=== PATIENT | female | born 2000 | race Caucasian/White ===

== ENCOUNTER 2019-01-15 13:59 | Observation (INO) | payer SELFPAY ==
[~2019-01-15] VITALS: Ht 162.6 cm; Wt 65.9 kg
--- NOTE | 2019-01-15 14:34 | NUR ---
URINE SENT TO THE LAB.
[2019-01-15 14:40] LABS: BASOPHILS 0.3 % (0-2); EOSINOPHILS 0.6 % (0-7); HEMATOCRIT 35.2 % (36.0-48.0); HEMOGLOBIN 12.6 g/dL (12-16); IMMATURE GRANULOCYTES 0.4 % (0-5); LYMPHOCYTES 12.9 % (15-50); MCH 29.5 pg (26.0-34.0); MCHC 35.8 g/dL (31.0-37.0); MCV 82.4 fL (80.0-100.0); MONOCYTES 7.1 % (2-11); NEUTROPHILS 78.7 % (40-80); PLATELET COUNT 252 10x3/uL (130-400); RBC 4.27 10x6/uL (4.00-5.40); RDW 12.5 % (11.5-14.5); WBC 12.8 10x3/uL (4.8-10.8)
[2019-01-15 14:54] LABS: APPEARANCE CLEAR (CLEAR); BILIRUBIN NEGATIVE (NEGATIVE); COLOR YELLOW (YELLOW); GLUCOSE NEGATIVE (NEGATIVE); KETONE NEGATIVE (NEGATIVE); NITRITE NEGATIVE (NEGATIVE); PROTEIN NEGATIVE (NEGATIVE); UROBILINOGEN NORMAL (NORMAL)
[2019-01-15 14:55] LABS: BACTERIA MANY /hpf (NONE SEEN); EPITHELIAL CELLS 0-5 /hpf (0-5); HCG URINE NEGATIVE (NEGATIVE); MUCUS <1+ /lpf (NONE SEEN); RED CELLS - URINE 0-5 /hpf (0-5)
[2019-01-15 14:58] LABS: ALBUMIN 4.5 g/dL (3.4-5.0); ALKALINE PHOSPHATASE 85 U/L (46-116); ALT (SGPT) 33 U/L (10-68); BILIRUBIN - TOTAL 0.46 mg/dL (0.2-1.3); CALC OSMOLALITY 272 mosm/kg (275-300); CARBON DIOXIDE 28.2 mmol/L (21.0-32.0); CHLORIDE - SERUM 101 mmol/L (98-107); CREATININE - SERUM 0.9 mg/dL (0.6-1.3); GLUCOSE 90 mg/dL (74-106); POTASSIUM - SERUM 4.5 mmol/L (3.5-5.1); SODIUM 136 mmol/L (136-145); UREA NITROGEN 15 mg/dL (7-18); eGFR NON AFRICAN AMERICAN 85 mL/min (90-120)
[2019-01-15 17:16] VITALS: BP 140/93; Ht 162.6 cm; Wt 65.9 kg
--- NOTE | 2019-01-15 19:23 | NUR ---
PT PREOP AND READY FOR SX. CONSENTS SIGNED. NO S/S OF ACUTE DISTRESS. CL IN PLACE. FAMILY AT BEDSIDE.
[2019-01-15 21:27] VITALS: BP 116/68
--- NOTE | 2019-01-15 22:05 | NUR ---
DISCHARGED PATIENT VIA WHEELCHAIR WITH FAMILY. NO S/S OF DISTRESS
--- NOTE | 2019-01-16 17:11 | OP ---
PATIENT NAME: OZZY ISSA MEDICAL RECORD: [id number] :[birth year] LOCATION:D.M3 D.1211 ADMISSION DATE:01/15/19 SURGEON: XU TAVERAS MD DATE OF OPERATION: 01/15/2019 SURGEON: Xu Taveras MD ANESTHESIA: General anesthesia by Waylon Berrios CRNA. DIAGNOSIS: Right proximal ureteral stone 7 x 10 mm. PROCEDURES: Cystoscopy, right retrograde pyelogram, right ureteral stent insertion 6-Cypriot x 22 cm with string attached. FINDINGS: Radiodense right proximal ureteral 7 x 10 mm stone. BLOOD LOSS: None. CLINICAL HISTORY: This is a 18-year-old female, A0, who came from [place] to get today in [place]. She is planning on returning to [place] with her tomorrow morning. She had acute right flank pain and she came to the Emergency Room. A CT scan shows a solitary stone in the right proximal ureter 7 x 10 mm approximately in size. There is hydronephrosis. She was admitted for pain control. She comes now to have a right ureteral stent inserted. She will then travel back to [place] and have the stone treated definitively in [place]. She is not allergic to any medications. She was given Ancef conduit installer to the OR. DESCRIPTION OF PROCEDURE: The patient was given induction of general anesthesia. She was then placed in the dorsal lithotomy position and prepped and draped. Fluoroscopy revealed a radiodense stone. I confirmed this with the retrograde pyelogram. We used a 21-Cypriot cystoscope with 30-degree lens. The bladder shows signs of cystitis cystica. There are single ureteral orifices on each side. No bladder tumors were seen. The right ureteral orifice was intubated with a 5-Cypriot open-ended ureteral catheter. A retrograde pyelogram was performed using diluted contrast. The radiodensity that we did see on fluoroscopy is indeed the stone. Through the lumen of the ureteral catheter, we inserted a Sensor wire up into the renal pelvis. The ureteral catheter was then removed, leaving the Sensor wire in place. Over the Sensor wire, we inserted the 6-Cypriot x 22-cm ureteral stent. Once the stent was in correct position, the wire was withdrawn entirely. The distal end of the stent was pushed into the bladder using a pusher. The bladder was then emptied through the cystoscope sheath and the scope was removed. The string on the distal end of the stent is maintained. It hangs out of the urethra. It was taped to the suprapubic area with a small piece of Tegaderm. Then, the excess length of string beyond the Tegaderm was cut off. TRANSINT:[id number] Voice Confirmation ID: [id number] DOCUMENT ID: [id number] OPERATIVE REPORT [id number] OZZY ISSA ROBERT S MD at 1711 CC: [id number] DICTATION DATE: 01/15/192045 COUNSELOR CAMP: 01/15/192221 DIS IN 01/15/19 [facility] [address] [place] [address]
--- NOTE | 2019-01-17 08:27 | MORECARE ---
CASE MANAGEMENT DISCHARGE SUMMARY PATIENT: OZZY ISSA UNIT: [id number] ADM DATE: 01/15/19 AGE: 18 : [birth year] SEX: F ROOM/BED: D.1211 AUTHOR: SUNNY PANDYA PHYSICIAN: REFERRING PHYSICIAN: MARK TAVERAS MD DATE OF SERVICE: 01/17/19 Discharge Plan Patient Name: OZZY ISSA [facility] [facility] 2000 Planned Disposition: Anticipated Discharge Date: Discharge Date: 01/15/2019 Expected LOS: Initial Reviewer: [id number] Initial Review Date: 01/17/2019 Generated: 01/17/19 9:27 am Patient Name: OZZY ISSA Page [id number] at 0827 All edits/amendments must be made on the electronic document DICTATION DATE: 01/17/19826 AUTOMATIC TOE LASTER: CARLYLE 01/17/19826 RPT#: [id number] DC DATE:01/15/19 STATUS: DIS IN [facility] [address] [place] [address] END OF REPORT
== END 2019-01-15 23:09 | disposition home or self-care (01) ==
LOC: D.ER 13:59 → OBSVTIME 16:36 → D.M3 16:36
PROVIDERS: Emergency Medicine; ADMIT Urology; ATTEND Urology
DX: N20.1 Calculus of ureter (principal)